=== PATIENT | female | born 1980 | race African-American/Black ===

== ENCOUNTER 2017-03-25 00:02 | Emergency (ER) | payer MEDICAID ==
[~2017-03-25] VITALS: Ht 154.9 cm; Wt 82.0 kg
[2017-03-25] MEDS ORDERED: KETOROLAC 60MG/2ML VIAL IM ONE (02:45)
[2017-03-25 04:25] VITALS: BP 135/78
== END 2017-03-25 05:25 | disposition home or self-care (01) ==
LOC: ER 02:01
DX: M62.830 Muscle spasm of back (principal); F17.200 Nicotine dependence, unspecified, uncomplicated
CPT/HCPCS: 71045; 81025; 96372; 99283; J1885